=== PATIENT | female | born 1980 | race American Indian/Alaskan Native ===

== ENCOUNTER 2018-11-03 09:37 | Emergency (ER) | payer BC, OTHER ==
--- NOTE | 2018-11-03 10:11 | EDM.PDOC ---
ED HPI GENERAL MEDICAL PROBLEM - General Chief Complaint: General Stated Complaint: EARLY PG, SHARP HEADACHE, ? HIGH BLOOD PRESSURE Time Seen by Provider: 11/03/18 10:00 Source of Information: Reports: Patient History Limitations: Reports: No Limitations - History of Present Illness INITIAL COMMENTS - FREE TEXT/NARRATIVE: This 38 yo female patient reports to the ED with some lightheadedness and not feeling well. The patient reports she has taken 2 home tests which were both positive. The patient reports her last menstrual cycle was around September 09. The patient reports she has not had a clinic visit. The patient reports she did have a miscarriage with her last and also had hypertension with that . The patient was started on Lebetolol by Dr. Tinajero during that . Onset: Today Duration: Constant Location: Reports: Other Quality: Reports: Other Severity: Moderate Improves with: Reports: None Worsens with: Reports: None Associated Symptoms: Reports: No Other Symptoms - Related Data Allergies Allergy/AdvReac Type Severity Reaction Status Date / Time No Known Allergies Allergy Verified 11/03/18 09:45 Home Meds: Home Meds . 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 Musculoskeletal History: Reports: None Neurological History: Reports: None Psychiatric History: Reports: None Endocrine/Metabolic History: Reports: None Hematologic History: Reports: None Immunologic History: Reports: None Oncologic (Cancer) History: Reports: None Dermatologic History: Reports: None - Past Surgical History Female Surgical History: Reports: Section Social & Family History - Tobacco Use Smoking Status *Q: Former Smoker Used Tobacco, but Quit: Yes Month/Year Tobacco Last Used: 2018 - Caffeine Use Caffeine Use: Reports: Soda - Recreational Drug Use Recreational Drug Use: No ED ROS GENERAL - Review of Systems Review Of Systems: ROS reveals no pertinent complaints other than HPI. ED EXAM, GENERAL - Physical Exam Exam: See Below Exam Limited By: No Limitations General Appearance: Alert, WD/WN, Anxious Eye Exam: Bilateral Eye: EOMI, Normal Inspection, PERRL Ears: Normal External Exam, Normal Canal, Hearing Grossly Normal, Normal TMs Nose: Normal Inspection, Normal Mucosa, No Blood Throat/Mouth: Normal Inspection, Normal Lips, Normal Teeth, Normal Gums, Normal Oropharynx, Normal Voice, No Airway Compromise Head: Atraumatic, Normocephalic Neck: Normal Inspection, Supple, Non-Tender, Full Range of Motion Respiratory/Chest: No Respiratory Distress, Lungs Clear, Normal Breath Sounds, No Accessory Muscle Use, Chest Non-Tender Cardiovascular: Normal Peripheral Pulses, Regular Rate, Rhythm, No Edema, No Gallop, No JVD, No Murmur, No Rub GI/Abdominal: Normal Bowel Sounds, Soft, Non-Tender, No Organomegaly, No Distention, No Abnormal Bruit, No Mass (Female) Exam: Deferred Rectal (Female) Exam: Deferred Back Exam: Normal Inspection, Full Range of Motion, NT Extremities: Normal Inspection, Normal Range of Motion, Non-Tender, Normal Capillary Refill, No Pedal Edema Neurological: Alert, Oriented, CN II-XII Intact, Normal Cognition, Normal Gait, Normal Reflexes, No Motor/Sensory Deficits Psychiatric: Normal Affect, Normal Mood Skin Exam: Warm, Dry, Intact, Normal Color, No Rash Lymphatic: No Adenopathy Course - Vital Signs Last Recorded V/S: Last Vital Signs Temp 37.2 C 11/03/18 11:07 Pulse 80 11/03/18 11:07 Resp 16 11/03/18 11:07 BP 90/55 L 11/03/18 11:07 Pulse Ox 94 L 11/03/18 11:07 - Orders/Labs/Meds Labs: Laboratory Tests 11/03/18 11/03/18 11/03/18 Range/Units 10:10 10:10 10:10 WBC 8.8 (5.0-10.0) 10^3/uL RBC 4.24 (4.2-5.4) 10^6/uL Hgb 12.5 (12.0-16.0) g/dL Hct 36.9 L (37.0-47.0) % MCV 87.0 (80-100) fL MCH 29.5 (27.0-34.0) pg MCHC 33.9 (33.0-35.0) g/dL Plt Count 294 (150-450) 10^3/uL Neut % (Auto) 69.9 (42.2-75.2) % Lymph % (Auto) 20.8 (20.5-50.1) % [place] % (Auto) 3.9 (2-8) % Eos % (Auto) 4.8 H (1.0-3.0) % Baso % (Auto) 0.6 (0.0-1.0) % Sodium (135-145) mmol/L Potassium (3.6-5.0) mmol/L Chloride (101-111) mmol/L Carbon Dioxide (21.0-31.0) mmol/L Anion Gap BUN (7-18) mg/dL Creatinine (0.6-1.3) mg/dL Est Cr Clr Drug Dosing mL/min Estimated GFR (MDRD) BUN/Creatinine Ratio Glucose (74-105) mg/dL Calcium (8.4-10.2) mg/dl Total Bilirubin (0.2-1.0) mg/dL AST (10-42) IU/L ALT (10-60) IU/L Alkaline Phosphatase (42-121) IU/L Total Protein (6.7-8.2) g/dl Albumin (3.2-5.5) g/dl Globulin Albumin/Globulin Ratio HCG, Qual Positive HCG, Quant > 1359 H (0-25) mIU/ml Beta HCG, Quant 8344 mIU/ml Urine Color (YELLOW) Urine Appearance (CLEAR) Urine pH (5.0-9.0) Ur Specific [place] (1.005-1.030) Urine Protein (NEGATIVE) Urine Glucose (UA) (NEGATIVE) Urine Ketones (NEGATIVE) Urine Occult Blood (NEGATIVE) Urine Nitrite (NEGATIVE) Urine Bilirubin (NEGATIVE) Urine Urobilinogen (0.2-1.0) mg/dL Ur Leukocyte Esterase (NEGATIVE) 11/03/18 11/03/18 Range/Units 10:10 10:41 WBC (5.0-10.0) 10^3/uL RBC (4.2-5.4) 10^6/uL Hgb (12.0-16.0) g/dL Hct (37.0-47.0) % MCV (80-100) fL MCH (27.0-34.0) pg MCHC (33.0-35.0) g/dL Plt Count (150-450) 10^3/uL Neut % (Auto) (42.2-75.2) % Lymph % (Auto) (20.5-50.1) % [place] % (Auto) (2-8) % Eos % (Auto) (1.0-3.0) % Baso % (Auto) (0.0-1.0) % Sodium 134 L (135-145) mmol/L Potassium 3.1 L (3.6-5.0) mmol/L Chloride 101 (101-111) mmol/L Carbon Dioxide 21.0 (21.0-31.0) mmol/L Anion Gap 15.1 BUN 11 (7-18) mg/dL Creatinine 0.6 (0.6-1.3) mg/dL Est Cr Clr Drug Dosing 100.55 mL/min Estimated GFR (MDRD) > 60 BUN/Creatinine Ratio 18.33 Glucose 147 H (74-105) mg/dL Calcium 8.4 (8.4-10.2) mg/dl Total Bilirubin 0.7 (0.2-1.0) mg/dL AST 20 (10-42) IU/L ALT 10 (10-60) IU/L Alkaline Phosphatase 40 L (42-121) IU/L Total Protein 7.2 (6.7-8.2) g/dl Albumin 3.7 (3.2-5.5) g/dl Globulin 3.5 Albumin/Globulin Ratio 1.06 HCG, Qual HCG, Quant (0-25) mIU/ml Beta HCG, Quant mIU/ml Urine Color Yellow (YELLOW) Urine Appearance Clear (CLEAR) Urine pH 6.0 (5.0-9.0) Ur Specific [place] 1.020 (1.005-1.030) Urine Protein Negative (NEGATIVE) Urine Glucose (UA) Negative (NEGATIVE) Urine Ketones Negative (NEGATIVE) Urine Occult Blood Negative (NEGATIVE) Urine Nitrite Negative (NEGATIVE) Urine Bilirubin Negative (NEGATIVE) Urine Urobilinogen 0.2 (0.2-1.0) mg/dL Ur Leukocyte Esterase Negative (NEGATIVE) - Re-Assessments/Exams Free Text/Narrative Re-Assessment/Exam: 11/03/18 11:41 A consult call with Dr[address] Tinajero resulted in establishing an appointment for the patient with Dr. Louie for Saturday (11/05/18) at 1030 and starting the patient on Labetalol (100 mg) to take 1 by mouth 2 times per day. Departure - Departure Time of Disposition: 11:43 Disposition: Home, Self-Care 01 Condition: Fair Clinical Impression: Hypertension affecting in first trimester - Discharge Information *PRESCRIPTION DRUG MONITORING PROGRAM REVIEWED*: Not Applicable *COPY OF PRESCRIPTION DRUG MONITORING REPORT IN PATIENT MATTHEW: Not Applicable Instructions: Hypertension During , [id number] Forms: ED Department Discharge Care Plan Goals: The patient was advised of the examination and lab results during the visit. The patient was discharged with a script for Labetalol (100 mg) #30 to take 1 by mouth 2 times per day. An appointment with Dr. Louie (OB) has been established for Saturday (11/05/18) at 1030. If the patient has any additional symptoms or concerns, the patient should either return to the emergency department or visit her primary care facility.
[2018-11-03 10:42] LABS: ANION GAP 15.1; CHLORIDE,CL 101 mmol/L (101-111); SODIUM,NA 134 mmol/L (135-145)
[2018-11-03 11:08] VITALS: BP 90/55
== END 2018-11-03 12:21 | disposition home or self-care (01) ==
LOC: DL.ED 09:37
DX: O13.1 Gestational [pregnancy-induced] hypertension without significant proteinuria, first trimester (principal); Z87.891 Personal history of nicotine dependence
CPT/HCPCS: 36415; 80053; 81003; 84702; 84703; 85025; 99284